=== PATIENT | female | born 1980 | race Caucasian/White ===

== ENCOUNTER 2016-10-12 14:10 | Emergency (ER) | payer BC ==
[~2016-10-12 14:10] MED LIST: NO HOME MEDICATIONS
== END 2016-10-12 16:07 | disposition home or self-care (01) ==
LOC: ER 14:10
DX: S16.1XXA Strain of muscle, fascia and tendon at neck level, initial encounter (principal); M25.532 Pain in left wrist; Z88.5 Allergy status to narcotic agent; W19.XXXA Unspecified fall, initial encounter
CPT/HCPCS: 72072; 73110-LT; 99283

== ENCOUNTER 2017-04-01 17:32 | Emergency (ER) | payer SELFPAY | END 2017-04-01 19:33 | disposition home or self-care (01) | LOC: ER 17:32 | DX: M79.632 Pain in left forearm (principal); F17.200 Nicotine dependence, unspecified, uncomplicated; Z90.710 Acquired absence of both cervix and uterus; Z88.5 Allergy status to narcotic agent | CPT/HCPCS: 99283 ==